=== PATIENT | female | born 1955 ===

== ENCOUNTER 2019-05-29 14:35 | Outpatient (CLI) | payer OTHER | END 2019-05-29 17:00 | disposition home or self-care (01) | LOC: RAD 14:35 | DX: Z01.811 Encounter for preprocedural respiratory examination (principal) ==

== ENCOUNTER 2021-08-11 08:30 | Outpatient (CLI) | payer OTHER | END 2021-08-11 09:00 | disposition home or self-care (01) | LOC: PPH VACUNA 08:30 | PROVIDERS: ATTEND Emergency Medicine Pediatric Emergency Medicine | DX: Z23 Encounter for immunization (principal) ==

== ENCOUNTER 2021-09-01 08:00 | Outpatient (CLI) | payer OTHER | END 2021-09-01 08:30 | disposition home or self-care (01) | LOC: PPH VACUNA 08:00 | PROVIDERS: ATTEND Emergency Medicine Pediatric Emergency Medicine | DX: Z23 Encounter for immunization (principal) ==

== ENCOUNTER 2024-12-06 07:40 | Outpatient (CLI) | payer OTHER | END 2024-12-06 07:42 | disposition home or self-care (01) | LOC: SONOGRAMA 07:40 | PROVIDERS: ATTEND Internal Medicine | DX: N18.2 Chronic kidney disease, stage 2 (mild) (principal) ==